=== PATIENT | female | born 1945 | race Caucasian/White ===

== ENCOUNTER 2019-05-15 20:32 | Inpatient (IN) ==
[2019-05-15] MEDS ORDERED: SODIUM CHLORIDE 0.9% 1,000 ML IV STA (22:15)
[2019-05-15] MEDS ORDERED: ONDANSETRON 4 MG/2 ML VIAL IV STA (22:15)
[2019-05-15 22:43] LABS: Basophils % 0.2 % (0.0-0.8); Eosinophils % 0.3 % (0.00-10.9); Hematocrit 37.1 VOL% (35.7-47.0); Hemoglobin 11.1 GM/DL (12.0-16.0); Immature Granulocytes % 0.2 %; Immature Granulocytes Absolute 0.01 #; Lymphocytes # 0.6 10*3/uL (1.4-4.0); Lymphocytes % 9.2 % (21.3-54.2); Mean Corpuscular HGB Conc 29.9 GM/DL (32-36); Mean Corpuscular Volume 96.4 FL (87-102); Mean Platelet Volume 10.1 FL (9.6-12.0); Monocytes % 4.3 % (1.7-12.7); Neutrophils % 85.8 % (38.7-73.9); Platelet Count 144 T/CUMM (130-400); Red Blood Count 3.85 MC/CUMM (3.8-5.5); Red Cell Distribution Width 12.7 % (9.3-17.3); White Blood Count 6.5 T/CUMM (4-12)
[2019-05-15 23:06] LABS: Albumin 3.7 G/DL (3.4-5.0); Bilirubin,Total 1.2 MG/DL (0.2-1.0); Calcium 9.6 MG/DL (8.5-10.1); Osmolality,Calculated 290.8 MOS/KG (273-304); Total Protein 7.9 G/DL (6.4-8.3)
[2019-05-15] MEDS ORDERED: MORPHINE 4 MG/1 ML VIAL IV STA (23:06)
[2019-05-15] MEDS ORDERED: KETOROLAC 30 MG/1 ML VIAL IV STA (23:07)
[2019-05-16] MEDS ORDERED: MORPHINE 4 MG/1 ML VIAL IV PRN (00:21)
[2019-05-16] MEDS ORDERED: NICOTINE 21 MG/24 HR PATCH TRANSDERM PRN (00:21)
[2019-05-16] MEDS ORDERED: ONDANSETRON 4 MG/2 ML VIAL IV PRN (00:21)
[2019-05-16 01:18] LABS: Apearance,Urine CLEAR (Clear); Bacteria,Urine Occasional /HPF (Few); Bilirubin,Urine Negative (Negative); Blood, Urine Negative (Negative); Glucose,Urine (UA) Negative (Negative); Ketones,Urine Negative (Negative); Nitrite,Urine Negative (Negative); Protein,Urine Negative; RBC,Urine 1 /HPF (0-4); Squamous Epithelial Cell,Urine Occasional /HPF (0-10); Urine Color Yellow (Yellow); Urine Specific Gravity 1.009 (1.001-1.035); WBC,Urine 12 /HPF (0-6)
[2019-05-16 02:38] LABS: Risk Ratio 3.57; VLDL CHOLESTEROL 20.4 MG/DL
[2019-05-16 03:17] LABS: Hepatitis B Core IgM Quant 0.06 Index; Hepatitis B Surface Ag Quant < 0.10 Index; Hepatitis B Surface Ag Result Negative (Negative); Hepatitis C Virus Ab Quant < 0.02 Index; Hepatitis C Virus Ab Result Negative (Negative)
[2019-05-16] MEDS: SODIUM CHLORIDE 0.9% 1,000 ML IV SCH ×4 (03:31→22:05)
[2019-05-16 04:59] LABS: Basophils % 0.1 % (0.0-0.8); Hematocrit 31.4 VOL% (35.7-47.0); Hemoglobin 9.5 GM/DL (12.0-16.0); Immature Granulocytes % 0.9 %; Immature Granulocytes Absolute 0.09 #; Lymphocytes # 0.4 10*3/uL (1.4-4.0); Lymphocytes % 3.9 % (21.3-54.2); Mean Corpuscular HGB Conc 30.3 GM/DL (32-36); Mean Corpuscular Volume 96.6 FL (87-102); Mean Platelet Volume 10.3 FL (9.6-12.0); Monocytes % 5.4 % (1.7-12.7); Neutrophils % 89.7 % (38.7-73.9); Platelet Count 146 T/CUMM (130-400); Red Blood Count 3.25 MC/CUMM (3.8-5.5); Red Cell Distribution Width 12.9 % (9.3-17.3); White Blood Count 9.9 T/CUMM (4-12)
[2019-05-16 05:24] LABS: Band Neutrophils 3 % (0-10); Lymphocytes 5 % (20-55); Segmented Neutrophils 87 % (50-85); Total Cells Counted 100
[2019-05-16 05:25] LABS: Albumin 2.9 G/DL (3.4-5.0); Bilirubin,Total 1.8 MG/DL (0.2-1.0); Calcium 8.6 MG/DL (8.5-10.1); Total Protein 6.1 G/DL (6.4-8.3)
[2019-05-16 05:25] LABS: Hypochromasia 1+; Platelet Estimate Normal
[2019-05-16] MEDS ORDERED: PNEUMOCOCCAL VACCINE (13 VALENT) 0.5 ML SYRINGE IM ONE (05:54)
[2019-05-16] MEDS: CLOBETASOL 0.05% OINT 15 GM TUBE TOP SCH ×2 (10:25→22:06)
[2019-05-16] MEDS: FAMOTIDINE 20 MG/2 ML VIAL IV SCH (10:30)
[2019-05-16] MEDS: FEXOFENADINE 180 MG TABLET PO SCH (10:34)
[2019-05-16] MEDS: cefOXitin 1,000 MG in SYRINGE 1 EACH IV SCH ×2 (11:15→19:27)
[2019-05-16] MEDS: QUINAPRIL 20 MG TABLET PO SCH ×2 (12:16→22:07)
[2019-05-16] MEDS: VERAPAMIL SR 180 MG TABLET PO SCH (12:16)
[2019-05-17] MEDS: cefOXitin 1,000 MG in SYRINGE 1 EACH IV SCH ×3 (02:30→17:41)
[2019-05-17 04:49] LABS: Basophils % 0.4 % (0.0-0.8); Eosinophils # 0.3 10*3/uL (0.0-0.87); Eosinophils % 3.8 % (0.00-10.9); Hemoglobin 9.4 GM/DL (12.0-16.0); Immature Granulocytes % 0.1 %; Immature Granulocytes Absolute 0.01 #; Lymphocytes # 0.9 10*3/uL (1.4-4.0); Lymphocytes % 11.7 % (21.3-54.2); Mean Corpuscular HGB Conc 30.3 GM/DL (32-36); Mean Corpuscular Volume 97.5 FL (87-102); Mean Platelet Volume 10.6 FL (9.6-12.0); Monocytes % 6.9 % (1.7-12.7); Neutrophils % 77.1 % (38.7-73.9); Platelet Count 117 T/CUMM (130-400); Red Blood Count 3.18 MC/CUMM (3.8-5.5); White Blood Count 7.7 T/CUMM (4-12)
[2019-05-17 05:22] LABS: Albumin 2.6 G/DL (3.4-5.0); Bilirubin,Total 2.1 MG/DL (0.2-1.0); Calcium 8.2 MG/DL (8.5-10.1); Osmolality,Calculated 288.8 MOS/KG (273-304); Total Protein 5.9 G/DL (6.4-8.3)
[2019-05-17] MEDS: QUINAPRIL 20 MG TABLET PO SCH (08:49)
[2019-05-17] MEDS: FAMOTIDINE 20 MG/2 ML VIAL IV SCH ×2 (08:49→12:57)
[2019-05-17] MEDS: VERAPAMIL SR 180 MG TABLET PO SCH (08:49)
[2019-05-17] MEDS: FEXOFENADINE 180 MG TABLET PO SCH (08:49)
[2019-05-17] MEDS: CLOBETASOL 0.05% OINT 15 GM TUBE TOP SCH ×2 (09:01→21:09)
[2019-05-17] MEDS ORDERED: hydrALAZINE 20 MG/1 ML VIAL IV PRN (10:54)
[2019-05-17] MEDS: DEXTROSE 5% NACL 0.45% 1,000 ML IV SCH ×2 (12:56→21:01)
[2019-05-17] MEDS: SODIUM CHLORIDE 0.9% 1,000 ML IV SCH (15:35)
[2019-05-18] MEDS: cefOXitin 1,000 MG in SYRINGE 1 EACH IV SCH ×3 (02:50→18:32)
[2019-05-18 04:48] LABS: Basophils % 0.2 % (0.0-0.8); Eosinophils # 0.2 10*3/uL (0.0-0.87); Eosinophils % 3.6 % (0.00-10.9); Hematocrit 30.8 VOL% (35.7-47.0); Hemoglobin 9.3 GM/DL (12.0-16.0); Immature Granulocytes % 0.2 %; Immature Granulocytes Absolute 0.01 #; Lymphocytes # 0.7 10*3/uL (1.4-4.0); Lymphocytes % 15.9 % (21.3-54.2); Mean Corpuscular HGB Conc 30.2 GM/DL (32-36); Mean Corpuscular Volume 98.1 FL (87-102); Mean Platelet Volume 10.3 FL (9.6-12.0); Monocytes % 6.7 % (1.7-12.7); Neutrophils % 73.4 % (38.7-73.9); Platelet Count 120 T/CUMM (130-400); Red Blood Count 3.14 MC/CUMM (3.8-5.5); Red Cell Distribution Width 12.9 % (9.3-17.3); White Blood Count 4.7 T/CUMM (4-12)
[2019-05-18] MEDS: DEXTROSE 5% NACL 0.45% 1,000 ML IV SCH ×3 (04:52→18:33)
[2019-05-18 05:20] LABS: Albumin 2.6 G/DL (3.4-5.0); Bilirubin,Total 0.9 MG/DL (0.2-1.0); Calcium 8.3 MG/DL (8.5-10.1); Total Protein 5.8 G/DL (6.4-8.3)
[2019-05-18 05:26] LABS: PT Patient Result 10.8 SECS
[2019-05-18] MEDS ORDERED: LACTATED RINGERS 1,000 ML IV SCH (08:00)
[2019-05-18] MEDS ORDERED: INDOMETHACIN SUPP 50 MG SUPP RECTAL ONE (08:00)
[2019-05-18] MEDS ORDERED: fentaNYL 100 MCG/2 ML VIAL ONE (08:14)
[2019-05-18] MEDS ORDERED: GLUCAGON 1 MG VIAL ONE (08:59)
[2019-05-18] MEDS ORDERED: PROPOFOL 200 MG/20 ML VIAL IV ONE (10:00)
[2019-05-18] MEDS ORDERED: PHENYLEPHRINE 1 MG/10 ML SYRINGE IV ONE (10:00)
[2019-05-18] MEDS ORDERED: SUCCINYLCHOLINE 200 MG/10 ML VIAL ONE (10:00)
[2019-05-18] MEDS ORDERED: GLYCOPYRROLATE 0.4 MG/2 ML VIAL ONE (10:00)
[2019-05-18] MEDS ORDERED: LIDOCAINE 2% 5 ML VIAL ONE (10:00)
[2019-05-18] MEDS ORDERED: ROCURONIUM 100 MG/10 ML VIAL IV ONE (10:00)
[2019-05-18] MEDS ORDERED: SEVOFLURANE 1 UNIT/15 MINUTE INH ONE (10:13)
[2019-05-18] MEDS ORDERED: ePHEDrine 50 MG/ML AMP ONE (10:13)
[2019-05-18] MEDS: FAMOTIDINE 20 MG/2 ML VIAL IV SCH (12:33)
[2019-05-18] MEDS ORDERED: DIAZEPAM 5 MG TABLET PO ONE (12:51)
[2019-05-18] MEDS: FEXOFENADINE 180 MG TABLET PO SCH (16:42)
[2019-05-18] MEDS: VERAPAMIL SR 180 MG TABLET PO SCH (16:42)
[2019-05-18] MEDS: CLOBETASOL 0.05% OINT 15 GM TUBE TOP SCH ×2 (16:43→21:41)
[2019-05-19] MEDS: DEXTROSE 5% NACL 0.45% 1,000 ML IV SCH ×2 (04:53→12:05)
[2019-05-19] MEDS: cefOXitin 1,000 MG in SYRINGE 1 EACH IV SCH ×3 (04:53→21:18)
[2019-05-19 05:11] LABS: Basophils % 0.3 % (0.0-0.8); Eosinophils # 0.2 10*3/uL (0.0-0.87); Eosinophils % 4.2 % (0.00-10.9); Hematocrit 28.6 VOL% (35.7-47.0); Hemoglobin 8.6 GM/DL (12.0-16.0); Immature Granulocytes % 0.3 %; Immature Granulocytes Absolute 0.01 #; Lymphocytes # 0.8 10*3/uL (1.4-4.0); Lymphocytes % 23.3 % (21.3-54.2); Mean Corpuscular HGB Conc 30.1 GM/DL (32-36); Mean Corpuscular Volume 97.3 FL (87-102); Mean Platelet Volume 10.5 FL (9.6-12.0); Monocytes % 10.3 % (1.7-12.7); Neutrophils % 61.6 % (38.7-73.9); Platelet Count 122 T/CUMM (130-400); Red Blood Count 2.94 MC/CUMM (3.8-5.5); Red Cell Distribution Width 12.9 % (9.3-17.3); White Blood Count 3.6 T/CUMM (4-12)
[2019-05-19 05:45] LABS: Albumin 2.4 G/DL (3.4-5.0); Bilirubin,Total 0.5 MG/DL (0.2-1.0); Calcium 8.3 MG/DL (8.5-10.1); Osmolality,Calculated 289.7 MOS/KG (273-304); Total Protein 5.8 G/DL (6.4-8.3)
[2019-05-19] MEDS: CLOBETASOL 0.05% OINT 15 GM TUBE TOP SCH ×2 (09:15→21:24)
[2019-05-19] MEDS: FEXOFENADINE 180 MG TABLET PO SCH (09:15)
[2019-05-19] MEDS: VERAPAMIL SR 180 MG TABLET PO SCH (09:15)
[2019-05-19] MEDS: FAMOTIDINE 20 MG/2 ML VIAL IV SCH (09:15)
[2019-05-19] MEDS: ASCORBIC ACID 500 MG TABLET PO SCH (21:19)
[2019-05-19] MEDS: APIXABAN 5 MG TABLET PO SCH (21:19)
[2019-05-20] MEDS: cefOXitin 1,000 MG in SYRINGE 1 EACH IV SCH ×2 (03:52→11:50)
[2019-05-20] MEDS: CLOBETASOL 0.05% OINT 15 GM TUBE TOP SCH (08:50)
[2019-05-20] MEDS: FEXOFENADINE 180 MG TABLET PO SCH (08:50)
[2019-05-20] MEDS: ASCORBIC ACID 500 MG TABLET PO SCH (08:50)
[2019-05-20] MEDS: VERAPAMIL SR 180 MG TABLET PO SCH (08:50)
[2019-05-20] MEDS: FAMOTIDINE 20 MG/2 ML VIAL IV SCH (08:50)
[2019-05-20] MEDS: APIXABAN 5 MG TABLET PO SCH (08:50)
[2019-05-20] MEDS ORDERED: BIOTIN 5 MG PO SCH (09:00)
[2019-05-20 12:15] VITALS: BP 159/89
[2019-05-20] MEDS ORDERED: cefTRIAXone 2,000 MG in SYRINGE 1 EACH IV ONE (14:55)
== END 2019-05-20 15:33 | disposition home or self-care (01) | DRG 444 ==
LOC: N.ED 20:32 → N.EDINP 05-16 00:15 → N.TELEN 05-16 01:55 → N.3E 05-18 18:14
PROVIDERS: ADMIT Family Medicine; ATTEND Family Medicine